=== PATIENT | female | born 1965 | race Native Hawaiian/Other Pacific Islander ===

== ENCOUNTER 2021-01-02 09:16 | Outpatient (CLI) | payer OTHER | END 2021-01-02 19:09 | disposition home or self-care (01) | LOC: MRI 09:16 | PROVIDERS: ATTEND Neurological Surgery | DX: M54.12 Radiculopathy, cervical region (principal); M54.16 Radiculopathy, lumbar region ==

== ENCOUNTER 2021-02-08 09:03 | Outpatient (CLI) | payer OTHER | END 2021-02-08 23:17 | disposition home or self-care (01) | LOC: CT 09:03 | PROVIDERS: ATTEND Neurological Surgery | DX: M54.12 Radiculopathy, cervical region (principal) ==

== ENCOUNTER 2021-12-03 13:55 | Outpatient (CLI) | payer OTHER | END 2021-12-03 19:46 | disposition home or self-care (01) | LOC: RAD 13:55 | PROVIDERS: ATTEND Internal Medicine | DX: Z13.820 Encounter for screening for osteoporosis (principal); N95.8 Other specified menopausal and perimenopausal disorders ==